=== PATIENT | male | born 1960 | race Caucasian/White ===

== ENCOUNTER 2017-09-29 14:55 | Inpatient (IN) ==
--- NOTE | 2017-09-29 15:30 | Emergency Department Note ---
Disposition Clinical Impression: Upper GI bleed Anemia Qualifiers: Anemia type: unspecified type Qualified Code(s): D64.9 - Anemia, unspecified Disposition: Admitted As Inpatient Condition: Serious Time of Disposition: 18:48 GI Bleed HPI - General Stated complaint: JOSÉ MIGUEL,Tarry stool Time Seen by Provider: 09/29/17 14:58 Source: patient Limitations: no limitations Nursing Notes Reviewed: Yes Vital Signs Reviewed: Yes - History of Present Illness HPI Narrative: Mr. Bliss, a 57yo male, presents from home for evaluation of a 2 day history of shortness of breath with mild exertion. He can walk 10-15 steps before be has to stop to rest due to breathlessness and weakness. He notes lightheadedness when he is [employer]. Over this today course, he also notes dark cold black tarry stools. He has associated nausea with no vomiting. Decreased by mouth intake. After a meal, he has an ache in his epigastrium which radiates to his interscapular back. His only current medication is over-the- counter Goody's headache powder usually taken daily. No fever, chills, vomiting, diarrhea, dysuria, hematuria, hematochezia, cough, chest pains, palpitations, numbness, tingling, syncope, headache, changes in vision - Related Data Home Medications Medication Instructions Recorded Confirmed Aspirin/Acetaminophen/Caffeine 1 each PO Q4H PRN 09/29/17 09/29/17 [Goody's Ex-Str Powder Packet] Lisinopril [Zestril] 40 mg PO DAILY 09/29/17 09/29/17 Allergies Allergy/AdvReac Type Severity Reaction Status Date / Time No Known Allergies Allergy Verified 09/29/17 15:43 All systems ED: reviewed and negative except as stated. Review of Systems: As Per HPI Past Medical History - Past Medical History Medical history: Reports: hypertension Psychiatric history: Reports: no psych history - Social History Smoking Status: Never smoker Smokeless Tobacco Status: Yes Alcohol use: Reports: none Drug use: Reports: none Physical Exam Vital Signs Reviewed - patient tachycardic. General: Patient is alert, oriented, and in no acute distress. Head: atraumatic, normocephalic Eye: normal appearance, PERRL, EOMI, no scleral icterus, no conjunctival injection ENT: mucous membranes moist, normal external ear exam Neck: normal inspection, trachea midline, full ROM Chest: normal inspection, symmetric chest rise Respiratory: Good respiratory effort. Bilateral breath sounds are clear without wheezing, crackles, or rhonchi. Cardiovascular: Regular rate and rhythm. No clicks, rubs, gallops, or murmors. Normal heart sounds. Abdomen: Bowel sounds present normoactive x-4 quadrants. Abdomen is soft, nondistended, and nontender. No guarding or rebound. No organomegaly noted. Rectal: Appropriate tone. No external hemorrhoids. Dark black tarry stool on glove fingertip. Bedside FOBT positive. Musculoskeletal: Spontaneously moving all extremities. Skin: warm, dry, intact. Neuro: Alert and oriented x4. Sensation light touch intact. Psych: Patient's affect is appropriate for situation. - General Limitations: no limitations General appearance: alert Course Course Narrative: Bedside FOBT was strongly positive. Clinical concern is for an upper GI bleed given history and physical. EKG dated 09/29/09 15:01 interpreted as sinus tachycardia with rate 112. Normal intervals. Normal axis. Nonspecific ST-T changes. No previous EKG for comparison. Patients presented tachycardia is responsive to IV fluids. Will provide a second liter. Hemoglobin is low and the tendons. No clinical indication for transfusion at this point. Type and screen completed. Have provided IV Protonix. I discussed the patient with Dr. Lua and Dr. Arriaza; Dr. Lua accepts the patient for continued evaluation management and Dr. Arriaza plans on taking him to endoscopy today. Patient is nothing by mouth. Vital Signs Temperature 97.7 F 09/29/17 15:00 Pulse Rate 115 09/29/17 15:00 Respiratory Rate 20 09/29/17 15:00 Blood Pressure 106/75 09/29/17 15:00 O2 Sat by Pulse Oximetry 99 09/29/17 15:00 Temperature 97.8 F 09/29/17 23:55 Pulse Rate 84 09/29/17 23:55 Respiratory Rate 18 09/29/17 23:55 Blood Pressure 107/67 09/29/17 23:55 O2 Sat by Pulse Oximetry 100 09/29/17 23:55 Oxygen Delivery Oxygen Delivery Room Air GI Bleed - Lab Data Result diagrams: 09/29/17 15:16 09/29/17 15:16 Lab Results 09/29/17 09/29/17 09/29/17 Range/Units 15:16 15:16 15:16 WBC 11.2 H (4.3-11.1) K/mcL RBC 3.30 L (4.19-5.50) M/mcL Hgb 10.2 L (12.9-16.9) g/dL Hct 29.7 L (37.5-50.1) % MCV 90.0 (83.0-100.0) fL MCH 30.9 (28.0-33.3) pg MCHC 34.3 (31.6-35.5) g/dL RDW 13.3 (11.5-14.5) % Plt Count 274 (140-400) K/mcL MPV 10.7 (9.4-12.4) fL Immature Gran % 0.4 (0-4) % Seg Neutrophils % 73.2 % Lymphocytes % 18.2 % Monocytes % 7.7 % Eosinophils % 0.2 % Basophils % 0.3 % Neutrophils # 8.2 (1.6-8.9) K/mcL Lymphocytes # 2.0 (0.6-4.6) K/mcL Monocytes # 0.9 (0.0-1.3) K/mcL Eosinophils # 0.0 (0.0-0.6) K/mcL Basophils # 0.0 (0.0-0.2) K/mcL Sodium 141 (136-145) mEq/L Potassium 3.7 (3.5-5.1) mEq/L Chloride 110 H (98-107) mEq/L Carbon Dioxide 24 (23-29) mEq/L BUN 46 H (6-20) mg/dL Creatinine 1.21 (0.70-1.30) mg/dL Est GFR ( Amer) > 60 (> 60) Est GFR (Non-Af Amer) > 60 (> 60) BUN/Creatinine Ratio 38 H (6-26) Glucose 126 H (70-105) mg/dL Calculated Osmolality 305 H (280-300) Calcium 9.1 (8.6-10.3) mg/dL Total Bilirubin 0.4 (0.3-1.0) mg/dL AST 18 (13-39) Units/L ALT 13 (7-52) Units/L Alkaline Phosphatase 44 (34-104) Units/L Troponin I < 0.03 (< 0.04) ng/mL B-Natriuretic Peptide (Less than 100) pg/mL Serum Total Protein 5.7 L (6.4-8.9) g/dL Albumin 3.9 (3.5-5.7) g/dL Globulin 1.8 L (2.4-3.5) g/dL Albumin/Globulin Ratio 2.2 (1.1-2.2) Urine Color (Yellow) Urine Clarity (Clear) Urine pH (5.0-8.0) pH Units Ur Specific [place] (1.010-1.025) Urine Protein (Neg-Trace) mg/dL Urine Glucose (UA) (Normal) mg/dL Urine Ketones (Negative) mg/dL Urine Blood (Negative) Urine Nitrite (Negative) Urine Bilirubin (Negative) Urine Urobilinogen (Normal) mg/dL Ur Leukocyte Esterase (Negative) Urine Microscopic RBC (0-3) per hpf Urine Microscopic WBC (0-3) per hpf Ur Squamous Epith Cells (None-Few) per lpf Urine Bacteria (None-Few) per hpf Hyaline Casts (None-Few) per lpf Ur Culture Indicated? (NO) Blood Type O POSITIVE Antibody Screen NEGATIVE 09/29/17 09/29/17 09/29/17 Range/Units 15:16 15:22 22:35 WBC (4.3-11.1) K/mcL RBC (4.19-5.50) M/mcL Hgb (12.9-16.9) g/dL Hct (37.5-50.1) % MCV (83.0-100.0) fL MCH (28.0-33.3) pg MCHC (31.6-35.5) g/dL RDW (11.5-14.5) % Plt Count (140-400) K/mcL MPV (9.4-12.4) fL Immature Gran % (0-4) % Seg Neutrophils % % Lymphocytes % % Monocytes % % Eosinophils % % Basophils % % Neutrophils # (1.6-8.9) K/mcL Lymphocytes # (0.6-4.6) K/mcL Monocytes # (0.0-1.3) K/mcL Eosinophils # (0.0-0.6) K/mcL Basophils # (0.0-0.2) K/mcL Sodium (136-145) mEq/L Potassium (3.5-5.1) mEq/L Chloride (98-107) mEq/L Carbon Dioxide (23-29) mEq/L BUN (6-20) mg/dL Creatinine (0.70-1.30) mg/dL Est GFR ( Amer) (> 60) Est GFR (Non-Af Amer) (> 60) BUN/Creatinine Ratio (6-26) Glucose (70-105) mg/dL Calculated Osmolality (280-300) Calcium (8.6-10.3) mg/dL Total Bilirubin (0.3-1.0) mg/dL AST (13-39) Units/L ALT (7-52) Units/L Alkaline Phosphatase (34-104) Units/L Troponin I < 0.03 (< 0.04) ng/mL B-Natriuretic Peptide 5 (Less than 100) pg/mL Serum Total Protein (6.4-8.9) g/dL Albumin (3.5-5.7) g/dL Globulin (2.4-3.5) g/dL Albumin/Globulin Ratio (1.1-2.2) Urine Color Yellow (Yellow) Urine Clarity Clear (Clear) Urine pH 5.5 (5.0-8.0) pH Units Ur Specific [place] 1.027 H (1.010-1.025) Urine Protein Trace (Neg-Trace) mg/dL Urine Glucose (UA) Normal (Normal) mg/dL Urine Ketones Trace H (Negative) mg/dL Urine Blood Negative (Negative) Urine Nitrite Negative (Negative) Urine Bilirubin Negative (Negative) Urine Urobilinogen Normal (Normal) mg/dL Ur Leukocyte Esterase Negative (Negative) Urine Microscopic RBC 0-3 (0-3) per hpf Urine Microscopic WBC 0-3 (0-3) per hpf Ur Squamous Epith Cells Moderate H (None-Few) per lpf Urine Bacteria None Seen (None-Few) per hpf Hyaline Casts Few (None-Few) per lpf Ur Culture Indicated? NO (NO) Blood Type Antibody Screen Attestation Statement - Attestation Attestation: I examined this patient and my medical decision-making was reviewed with the Resident Physician. I agree with the documented findings, disposition and treatment plan as described except to the extent set forth below. Suspect upper GI hemorrhage. Will admit after initiation of Protonix. We will trend H& H. We will consult gastroenterology for further management. Patient has not peritoneal findings at time of admission.
[2017-09-29] MEDS ORDERED: 0.9 % Sodium Chloride 1,000 ML IVC ONE ×2 (15:32→17:44)
[2017-09-29 15:34] LABS: Bilirubin,Urine Negative (Negative); Blood,Urine Negative (Negative); Clarity,Urine Clear (Clear); Color,Urine Yellow (Yellow); Glucose,Urine (UA) Normal (Normal); Ketones,Urine Trace mg/dL (Negative); Leukocyte Esterase,Urine Negative (Negative); Nitrite,Urine Negative (Negative); PH,Urine 5.5 pH Units (5.0-8.0); Protein,Urine Trace mg/dL (Neg-Trace); Specific Gravity,Urine 1.027 (1.010-1.025); Urobilinogen,Urine Normal (Normal)
[2017-09-29 15:37] LABS: Bacteria,Urine None Seen per hpf (None-Few); Hyaline Casts,Urine Few per lpf (None-Few); RBC,Urine 0-3 per hpf (0-3); Squamous Epithelial Cell,Urine Moderate per lpf (None-Few); WBC,Urine 0-3 per hpf (0-3)
[2017-09-29 15:43] LABS: Basophils % 0.3 %; Eosinophils % 0.2 %; Hematocrit 29.7 % (37.5-50.1); Hemoglobin 10.2 g/dL (12.9-16.9); Immature Granulocytes % 0.4 % (0-4); Lymphocytes % 18.2 %; Mean Corpuscular HGB Conc 34.3 g/dL (31.6-35.5); Mean Corpuscular Hemoglobin 30.9 pg (28.0-33.3); Mean Platelet Volume 10.7 fL (9.4-12.4); Monocytes # 0.9 K/mcL (0.0-1.3); Monocytes % 7.7 %; Neutrophils # 8.2 K/mcL (1.6-8.9); Platelet Count 274 K/mcL (140-400); Red Cell Distribution Width 13.3 % (11.5-14.5); Segmented Neutrophils % 73.2 %
[2017-09-29 16:06] LABS: Troponin I < 0.03 ng/mL (< 0.04)
[2017-09-29 16:10] LABS: Alanine Aminotransferase 13 Units/L (7-52); Albumin 3.9 g/dL (3.5-5.7); Albumin/Globulin Ratio 2.2 (1.1-2.2); Alkaline Phosphatase 44 Units/L (34-104); Aspartate Amino Transferase 18 Units/L (13-39); BUN/Creatinine Ratio 38 (6-26); Bilirubin,Total 0.4 mg/dL (0.3-1.0); Blood Urea Nitrogen 46 mg/dL (6-20); Calcium 9.1 mg/dL (8.6-10.3); Carbon Dioxide 24 mEq/L (23-29); Chloride 110 mEq/L (98-107); Globulin 1.8 g/dL (2.4-3.5); Glucose 126 mg/dL (70-105); Osmolality,Calculated 305 (280-300); Potassium 3.7 mEq/L (3.5-5.1); Sodium 141 mEq/L (136-145); Total Protein 5.7 g/dL (6.4-8.9); eGFR For African Americans > 60 (> 60); eGFR For Non-African Americans > 60 (> 60)
[2017-09-29] MEDS ORDERED: Pantoprazole 80 MG in 0.9 % Sodium Chloride 50 ML IVPB ONE (16:40)
[2017-09-29] MEDS ORDERED: *HR* FentaNYL (PF) 100 MCG/2 ML VIAL ONE (19:57)
[2017-09-29] MEDS ORDERED: *HR* Midazolam HCl 5 MG/5 ML VIAL IVP ONE (19:57)
[2017-09-29] MEDS ORDERED: Simethicone 40 MG/0.6 ML MLS IR ONE ×2 (20:06→20:08)
[2017-09-29] MEDS ORDERED: Tetracaine/Benzocaine/Butamben 200MG/SPRAY (100SPY/BOT) MM ONE ×2 (20:06→20:08)
[2017-09-29] MEDS ORDERED: *HR* Midazolam HCl 2 MG/2 ML VIAL IVP ONE ×2 (20:06→20:08)
[2017-09-29] MEDS ORDERED: *HR* FentaNYL (PF) 100 MCG/2 ML VIAL IVP ONE ×2 (20:06→20:08)
--- NOTE | 2017-09-29 20:09 | Pre-Sedation Evaluation ---
Pre-sedation evaluation - Pre-sedation checklist Date of procedure: 09/29/17 Procedure: egd Recent Vitals: Last Vital Signs Temp 98.1 F 09/29/17 20:07 Pulse 94 09/29/17 20:07 Resp 18 09/29/17 20:07 BP 129/75 09/29/17 20:07 Pulse Ox 99 09/29/17 20:07 H&P (including ROS) documented in medical record: Yes Previous reaction to sedatives/anesthetics: Yes; explain in comment Dietary Status: NPO after Midnight Dentition: No loose teeth or bridges ASA Classification *see protocol: CLASS II-Mild systemic disease Plan of Care: Pt appropriate candidate for procedure/moderate/conscious sedation , Risks/benefits of procedure/sedation discussed w/ patient/family
[2017-09-29] MEDS ORDERED: 0.9 % Sodium Chloride 500 ML IVC SCH (20:15)
[2017-09-29] MEDS ORDERED: SODIUM CHLORIDE/NAHCO3/KCL/PEG 4,000 ML SOLN.RECON PO ONE (20:30)
[2017-09-29] MEDS ORDERED: Naloxone 0.4 MG/ML INJ IVP PRN (22:10)
--- NOTE | 2017-09-29 22:22 | Internal Med History&Physical ---
Date of Encounter: 09/29/17 Time of Encounter: 22:17 Internal Medicine - H&P: HPI Chief complaint: upper GI bleed Admitted From: Emergency Dept Plans for Post Hospital Care: Home History of present illness: Mr. Bliss is a 57 year old male was apparently extremely healthy person. Has a worsening difficulty in breathing and a dark black tarry stool for past 2 days. For this to reason patient came to the emergency room for further evaluation. Patient denies chest pain, nausea, vomiting, dysuria, fever, chills, hypertension, numbness, syncopal episode, headache. Workup in the emergency room: Patient was evaluated in the emergency room. Noted that patient's symptoms was 10.2. Patient's stool occult blood was positive. Gastroenterology was called from emergency room. Reason for admission: Possible upper GI bleed for further evaluation and management. Past Med Surg Social Fam HX - Past Medical History Medical history: hypertension Psychiatric history: no psych history - Social History Smoking Status: Never smoker Smokeless Tobacco Status: Yes Alcohol use: none Drug use: none Internal Medicine - H&P: Meds Aspirin/Acetaminophen/Caffeine [Good[employer]'s Ex-Str Powder Packet] 1 each PO Q4H PRN 09/29/17 [History] Lisinopril [Zestril] 40 mg PO DAILY 09/29/17 [History] 3 Allergy/AdvReac Type Severity Reaction Status Date / Time No Known Allergies Allergy Verified 09/29/17 15:43 All Systems PM: A 10-system review of systems was performed and is negative for pertinent findings except as documented above in the HPI. - Constitutional Constitutional: no chills, no fever(s), no night sweats - EENT Eyes: no change in vision, no discharge, no pain, no photophobia Ears: no ear discharge, no ear pain, no tinnitus Nose, mouth and throat: no dysphagia, no nasal discharge, no neck pain, no sore throat - Cardiovascular Cardiovascular ROS IM: no chest pain, no diaphoresis, no dyspnea, no lightheadedness, no palpitations, no syncope - Respiratory Respiratory: dyspnea, no cough, no wheezing, no excessive phlegm production - Gastrointestinal Gastrointestinal: melena, no abdominal pain, no diarrhea, no hematemesis, no hematochezia, no nausea, no vomiting - Musculoskeletal Musculoskeletal ROS IM: no numbness, no tingling - Integumentary Integumentary IM: no rash, no unusual bruising - Neurological Neurological ROS: no confusion, no convulsions, no focal weakness, no numbness, no tingling, no tremor(s) - Hematologic/Lymphatic Hematologic/Lymphatic: no easy bruising - Constitutional Vitals: Temp Pulse Resp BP Pulse Ox 98.1 F 91 16 133/74 92 09/29/17 20:07 09/29/17 20:30 09/29/17 20:30 09/29/17 20:30 09/29/17 20:30 General appearance: Present: A&O X 3, pleasant, no acute distress, answers questions appropriately - Head Head exam: Present: atraumatic, normocephalic - Eye Eye exam: Present: PERRL, conjuntiva pink, sclera anicteric Pupils: Present: PERRL - Neck Neck exam general surgery: Present: supple, trachea midline. Absent: lymphadenopathy - Respiratory Respiratory exam: Present: CTAB. Absent: accessory muscle use, rales, rhonchi, wheezes - Cardiovascular Cardiovascular exam: Present: RRR, +S1, +S2. Absent: diastolic murmur, gallop, rubs, systolic murmur - GI/Abdominal GI/Abdominal exam: Present: normal bowel sounds, soft, no peritoneal signs. Absent: distended, tenderness - Extremities Exam Extremities exam: Present: warm, radial pulses palpable and symmetrical. Absent : calf tenderness, cyanotic, pedal edema - Neurological Exam Neurological exam: Present: CN II-XII intact, oriented X3, no focal deficits. Absent: pronater drift, facial droop, speech deficit - Skin Skin exam: Present: dry, intact Internal Med - H&P Results - Labs CBC & Chem 7: 09/29/17 15:16 09/29/17 15:16 - Assessment and plan (1) Upper GI bleed Current Visit: Yes Status: Acute Assessment and plan: 57/male Admitted with worsening shortness of breath. Patient also has a black tarry stool. Stool occult blood is positive. Gastroenterology was called from the emergency room. Gastroenterologic data EGD. Noted that there was a prepyloric 4 mm oozing ulcer. Appropriate intervention was done. Plan: Admit as inpatient. IV PPI 12 hourly.. Clear liquid diet. Prepare for colonoscopy tomorrow. Fall precaution. SCD. Patient's home dose of aspirin is on hold along with the lisinopril. Plan of care discussed with the patient. Patient verbalized understanding. (2) Anemia Current Visit: Yes Status: Acute Assessment and plan: Patient is a hemoglobin of 10.2. This is likely hemoconcentrated. We will monitor serial labs tomorrow. This is likely secondary to acute blood loss anemia from the prepyloric ulcer. Qualifiers: Anemia type: unspecified type Qualified Code(s): D64.9 - Anemia, unspecified (3) DVT prophylaxis Current Visit: Yes Status: Acute Assessment and plan: Patient has a acute a pyloric bleeding ulcer. Patient is not a candidate for pharmacological DVT prophylaxis. Patient will get SCD. Medical decision making: This patient has a moderate to severe risk of worsening in spite of being on appropriate medication due to the underlying comorbid conditions - Time Spent With Patient Total time spent is greater than 50% in coordination of care (as documented) at patient's floor/unit and/or counseling patient:
[2017-09-30 04:48] LABS: Basophils % 0.4 %; Eosinophils # 0.1 K/mcL (0.0-0.6); Eosinophils % 1.3 %; Hematocrit 26.5 % (37.5-50.1); Hemoglobin 8.8 g/dL (12.9-16.9); Immature Granulocytes % 0.3 % (0-4); Lymphocytes # 2.8 K/mcL (0.6-4.6); Lymphocytes % 31.2 %; Mean Corpuscular HGB Conc 33.2 g/dL (31.6-35.5); Mean Corpuscular Hemoglobin 30.7 pg (28.0-33.3); Mean Corpuscular Volume 92.3 fL (83.0-100.0); Mean Platelet Volume 10.8 fL (9.4-12.4); Monocytes # 0.8 K/mcL (0.0-1.3); Monocytes % 8.3 %; Neutrophils # 5.3 K/mcL (1.6-8.9); Nucleated Red Blood Cells 0.2 /100 WBC (0); Platelet Count 224 K/mcL (140-400); Red Blood Count 2.87 M/mcL (4.19-5.50); Red Cell Distribution Width 13.5 % (11.5-14.5); Segmented Neutrophils % 58.5 %
[2017-09-30 05:08] LABS: Alanine Aminotransferase 13 Units/L (7-52); Albumin 3.5 g/dL (3.5-5.7); Albumin/Globulin Ratio 2.3 (1.1-2.2); Alkaline Phosphatase 42 Units/L (34-104); Aspartate Amino Transferase 18 Units/L (13-39); BUN/Creatinine Ratio 42 (6-26); Bilirubin,Total 0.4 mg/dL (0.3-1.0); Blood Urea Nitrogen 33 mg/dL (6-20); Calcium 8.2 mg/dL (8.6-10.3); Carbon Dioxide 23 mEq/L (23-29); Chloride 112 mEq/L (98-107); Cholesterol 135 mg/dL (< 200); Globulin 1.5 g/dL (2.4-3.5); Glucose 101 mg/dL (70-105); HDL Cholesterol 27 mg/dL (40-59); LDL Cholesterol,Calculated 90 mg/dL (0-99); Magnesium 1.9 mg/dL (1.6-2.6); Osmolality,Calculated 299 (280-300); Phosphorous 2.5 mg/dL (2.7-4.5); Potassium 3.9 mEq/L (3.5-5.1); Sodium 141 mEq/L (136-145); Triglycerides 88 mg/dL (< 150); eGFR For African Americans > 60 (> 60); eGFR For Non-African Americans > 60 (> 60)
[2017-09-30] MEDS ORDERED: Pantoprazole 40 MG VIAL IVP SCH (06:00)
[2017-09-30] MEDS ORDERED: *HR* Propofol 200 MG/20 ML VIAL IVP ONE (08:35)
--- NOTE | 2017-09-30 09:00 | Anesthesia Evaluation PreOp ---
Date of Encounter: 09/30/17 Time of Encounter: 09:00 - Past History Planned Operation: Colonoscopy Cardiac History: HTN, Other (Anemia) Pulmonary History: Denies Any Significant HX [employer] History: Denies Any Significant HX Other Medical History: Denies Any Significant HX Anesthesia History: No Prior Anesthetic Complications Alcohol Use: none Drug use: none Medications and Allergies Aspirin/Acetaminophen/Caffeine [[employer] Ex-Str Powder Packet] 1 each PO Q4H PRN 09/29/17 [History] Lisinopril [Zestril] 40 mg PO DAILY 09/29/17 [History] 3 Allergy/AdvReac Type Severity Reaction Status Date / Time No Known Allergies Allergy Verified 09/29/17 15:43 - Meds/Allergy Pre-op Review Medications Reviewed: Yes Allergies Reviewed: Yes Beta Blockers on Current Med List: No Anesthesia Results - Labs 09/30/17 03:54 09/30/17 03:54 Anesthesia Exam O2 Sat Height 1.8 m Height 1.8 m Weight 97 kg Weight 96.162 kg Weight 96.071 kg O2 Sat by Pulse Oximetry 100 O2 Sat by Pulse Oximetry 100 O2 Sat by Pulse Oximetry 100 O2 Sat by Pulse Oximetry 100 O2 Sat by Pulse Oximetry 92 O2 Sat by Pulse Oximetry 98 O2 Sat by Pulse Oximetry 98 O2 Sat by Pulse Oximetry 97 O2 Sat by Pulse Oximetry 99 O2 Sat by Pulse Oximetry 99 O2 Sat by Pulse Oximetry 99 O2 Sat by Pulse Oximetry 99 O2 Sat by Pulse Oximetry 98 O2 Sat by Pulse Oximetry 100 O2 Sat by Pulse Oximetry 99 O2 Sat by Pulse Oximetry 99 Vital Signs Temp Pulse Resp BP Pulse Ox 97.7 F 115 20 106/75 99 09/29/17 15:00 09/29/17 15:00 09/29/17 15:00 09/29/17 15:00 09/29/17 15:00 Height: 5'11 Weight: 213 lbs NPO (# of Hours): MN Pain Scale: 0 - HEENT Pupil (Motor): Pupils equal, EOMI Mallampati: II Teeth: Normal Oral Opening: Greater than 3 - [employer] LOC: Oriented [employer] Motor: Normal RUE, Normal LUE, Normal RLE, Normal LLE, Normal Face [employer]GER Sensory: Normal: RUE, LUE, RLE, LLE, Face - Cardiac Rhythm: Regular Murmur: None JVD: No Carotid Bruit: No - Pulmonary Breath Sounds: bilateral Clear Respiratory Effort: Symmetrical Anesthesia Assess/Plan ASA Score: 2 Modified [place] Scale for Level of Consciousness: Cooperative, oriented, and tranquil Anesthetic Plan: MAC Monitoring Plan: Standard Monitors Recovery Plan: Other (Discussed MAC, agrees to proceed)
--- NOTE | 2017-09-30 10:03 | Anesthesia Evaluation Post Op ---
Date of Encounter: 09/30/17 Time of Encounter: 10:02 - Vital Signs Vital Signs: Vital Signs Temperature 97.7 F 09/29/17 15:00 Pulse Rate 115 09/29/17 15:00 Respiratory Rate 20 09/29/17 15:00 Blood Pressure 106/75 09/29/17 15:00 O2 Sat by Pulse Oximetry 99 09/29/17 15:00 Temperature 98.1 F 09/30/17 07:49 Pulse Rate 86 09/30/17 08:57 Respiratory Rate 16 09/30/17 08:57 Blood Pressure 131/70 09/30/17 08:57 O2 Sat by Pulse Oximetry 100 09/30/17 08:57 Oxygen Delivery Oxygen Delivery Room Air - Lungs Lungs: Clear Ascult./Percussion - Airway Airway: Non-obstructed - Cardiovascular Regular Rate - Mental Status Mental Status: Alert & Oriented, Answers Appropriately - Pain Pain Scale: 0 - Nausea Vomiting Nausea Vomiting: Not Present - Hydration Hydration: NPO, Has not voided - Discharge PostOp Status: Transfer Patient to floor
--- NOTE | 2017-09-30 11:30 | Gastroenterology Consult Note ---
<Gibran Winn - Last Filed: 09/30/17 11:27> Date of Encounter: 09/30/17 Time of Encounter: 11:00 - Assessment and plan (1) Upper GI bleed Status: Acute Assessment and plan: Fecal occult blood test was positive in the ED. EGD completed yesterday showed one 4mm oozing gastric ulcer in the prepyloric region of stomach, ulcer was treated with heater probe. Plan for colonoscopy today. Follow up in GI office in 2 weeks. Will repeat CBC at that time, if Hgb continues to trend down, will plan for capsule endoscopy. (2) Anemia Status: Acute Assessment and plan: Hgb on admission was 10.2 and this AM Hgb 8.8. Continue to monitor CBC and transfuse PRBC as needed. Plan for colonoscopy today. Qualifiers: Anemia type: unspecified type Qualified Code(s): D64.9 - Anemia, unspecified - Time Spent With Patient Total time spent is greater than 50% in coordination of care (as documented) at patient's floor/unit and/or counseling patient: GI History of Present Illness - Data of Consult Patient: new to practice Consult date: 09/30/17 Requesting Physician: Lucy Noel MD - Consult Narrative Reason for consult: Upper GI Bleed History of present illness: Mr. Bliss is a 57 year old male with PMHx of HTN who presented to the ED with worsening difficulty breathing and melena for 2 days prior to admission. He denies fever, chills, chest pain, abdominal pain, nausea, vomiting, or hematochezia. We were consulted to evaluate his melena and anemia. Hgb on admission was 10.2 and this AM Hgb 8.8. Fecal occult blood test was positive in the ED. EGD completed yesterday showed one 4mm oozing gastric ulcer in the prepyloric region of stomach, ulcer was treated with heater probe. Procedures: None NSAIDs: ASA Anticoagulation: None Past Med Surg Social Fam HX - Past Medical History Medical history: hypertension Psychiatric history: no psych history - Social History Smoking Status: Never smoker Smokeless Tobacco Status: Yes Alcohol use: none Drug use: none - Family History Father Hx Family Cardiac Disorders: (HTN, Pacer) Hx Family Endocrine Disorder: (DM) Mother Hx Family Cardiac Disorders: (HTN) - Gastrointestinal Gastrointestinal: Present: as per HPI - Constitutional Constitutional: as per HPI - EENT Eyes: as per HPI Ears: Present: as per HPI Nose, mouth and throat: Present: as per HPI - Cardiovascular Cardiovascular ROS: Present: as per HPI - Respiratory Respiratory IM: Present: as per HPI - Genitourinary Genitourinary: Absent: change in color, Urinary frequency - Neurological ROS Neurological GI: Present: as per HPI - Hematologic/Lymphatic Hematologic/Lymphatic pediatric: Present: as per HPI - Musculoskeletal Musculoskeletal ROS GI: Present: as per HPI - Integumentary Integumentary GI: Present: as per HPI - Psychiatric ROS Psychiatric GI: Present: as per HPI - Endocrine Endocrine IM: Present: as per HPI - Constitutional Vitals: Temp Pulse Resp BP Pulse Ox 98.1 F 86 16 131/70 100 09/30/17 07:49 09/30/17 08:57 09/30/17 08:57 09/30/17 08:57 09/30/17 08:57 General appearance: Present: cooperative, A&O X 3, no acute distress, answers questions appropriately - Head Head exam: Present: atraumatic, normocephalic - Eye Eye exam: Present: normal appearance, sclera anicteric - ENT ENT exam: Present: mucous membranes moist - Neck Neck exam general surgery: Present: normal inspection, trachea midline - Respiratory Respiratory exam: Present: CTAB. Absent: rales, rhonchi - Cardiovascular Cardiovascular exam: Present: RRR, +S1, +S2 - GI/Abdominal GI/Abdominal exam: Present: soft, no peritoneal signs. Absent: distended, firm , guarding, tenderness - Rectal Rectal exam: Present: deferred - Extremities Exam Extremities exam: Present: warm - Neurological Exam Neurological exam: Present: no focal deficits - Psychiatric Psychiatric exam: Present: normal affect, normal mood - Skin Skin exam: Present: dry, intact, normal color, warm Results - Labs CBC & Chem 7: 09/30/17 03:54 09/30/17 03:54 Labs: Last Result Calcium 8.2 mg/dL (8.6-10.3) L 09/30/17 03:54 Troponin I < 0.03 ng/mL (< 0.04) 09/30/17 10:24 Triglycerides 88 mg/dL (< 150) 09/30/17 03:54 Entire Visit Hgb 8.8 g/dL (12.9-16.9) L 09/30/17 03:54 Hct 26.5 % (37.5-50.1) L 09/30/17 03:54 Total Bilirubin 0.4 mg/dL (0.3-1.0) 09/30/17 03:54 AST 18 Units/L (13-39) 09/30/17 03:54 ALT 13 Units/L (7-52) 09/30/17 03:54 Consult Discharge Plan - Plan Instructions: Omeprazole (By mouth), Gastrointestinal Bleeding (DC), Anemia (DC ) Additional Instructions: Make sure you follow up with the GI doctor in 2 weeks. They want to check your blood counts again then to see if you need more work Referrals: So Ruby CNP [Primary Care Provider] - (tried making appointment today office was closed will try Tuesday to schedule) Wiliam Arriaza MD [Partnered Physician] - (2 weeks) Prescriptions: Omeprazole [PriLOSEC] 20 mg PO BIDAC #60 capsule.dr <Wiliam Arriaza - Last Filed: 09/30/17 22:46> Date of Encounter: 09/30/17 Time of Encounter: 09:00 - Time Spent With Patient Total time spent is greater than 50% in coordination of care (as documented) at patient's floor/unit and/or counseling patient: GI History of Present Illness - Data of Consult Requesting Physician: Lucy Noel MD - Consult Narrative History of present illness: Mr. Bliss is a 57 year old male - Constitutional Vitals: Temp Pulse Resp BP Pulse Ox 97.7 F 86 18 116/72 100 09/30/17 11:44 09/30/17 11:44 09/30/17 11:44 09/30/17 11:44 09/30/17 11:44 Results - Labs CBC & Chem 7: 09/30/17 03:54 09/30/17 03:54 Labs: Last Result Calcium 8.2 mg/dL (8.6-10.3) L 09/30/17 03:54 Troponin I < 0.03 ng/mL (< 0.04) 09/30/17 10:24 Triglycerides 88 mg/dL (< 150) 04/13/18 03:54 Entire Visit Hgb 8.8 g/dL (12.9-16.9) L 09/30/17 03:54 Hct 26.5 % (37.5-50.1) L 09/30/17 03:54 Total Bilirubin 0.4 mg/dL (0.3-1.0) 09/30/17 03:54 AST 18 Units/L (13-39) 09/30/17 03:54 ALT 13 Units/L (7-52) 09/30/17 03:54 - Attending Attestation I have personally performed a face to face evaluation on this patient. I have reviewed and agree with the care plan. History and Exam by me shows: Pt seen. No abd pain. Still dark stool: Rec: Colon today
[2017-09-30 11:45] VITALS: BP 116/72
--- NOTE | 2017-09-30 12:21 | Discharge Summary ---
- NOTES TO OUTPATIENT PROVIDER Notes to Outpatient Provider: Patient was found to have a gastric ulcer. I advised him to stop taking Aspirin and to try to get by with tylenol for back pain. Date of Encounter: 09/30/17 Time of Encounter: 12:18 - Discharge Diagnosis (1) Upper GI bleed Priority: Primary Status: Acute (2) Anemia Priority: Primary Status: Acute Qualifiers: Anemia type: unspecified type Qualified Code(s): D64.9 - Anemia, unspecified Hospital course: Mr. Bliss is a 57 year old male with h/o htn presented with black tarry stools x2days. hgb was 10.2 on admission and was hemodynamically stable. GI saw the patient from the ED and EGD done showed 4mm oozinggastric ulcer that was treated. Colonoscopy the following days showed diverticulosis. He was put on IV PPI initially and switched to oral PPI. His Hgb was 8.8 on day of discharge. GI was ok with him leaving and will see him in 2 weeks to repeat H/H and if he drops they will do a video capsule study. He was advised to stop ASA and to use tylenol for pain. Was discharged on 09/30. - Time Spent with Patient Total time spent providing and/or coordinating discharge services: Greater than 30 minutes - Discharge Medications Prescriptions: Omeprazole [PriLOSEC] 20 mg PO BIDAC #60 capsule. Home Medications: Lisinopril [Zestril] 40 mg PO DAILY 09/29/17 [History] Omeprazole [PriLOSEC] 20 mg PO BIDAC #60 capsule. 09/30/17 [Rx] Allergies/Adverse Reactions: 3 Allergy/AdvReac Type Severity Reaction Status Date / Time No Known Allergies Allergy Verified 09/29/17 15:43 Date of admission: 09/29/17 23:57 Primary care physician: ODILIA Fagan - Constitutional Vitals: Temp Pulse Resp BP Pulse Ox 97.7 F 86 18 116/72 100 09/30/17 11:44 09/30/17 11:44 09/30/17 11:44 09/30/17 11:44 09/30/17 11:44 General appearance: Present: A&O X 3, pleasant, no acute distress, answers questions appropriately Exam: GEN: NAD CVS: RRR. S1, S2, No m/r/g RESP: CTAB ABD: Soft, NT, ND, +BS EXT: No edema. 2+ DP. No rashes NEURO: Nonfocal - Patient Status Disposition: Home, Self-Care Condition: Fair Overall status at discharge: patient is progressing back to baseline - Discharge Instructions Instructions: Omeprazole (By mouth), Gastrointestinal Bleeding (DC), Anemia (DC ) Follow Up With: So Ruby CNP [Primary Care Provider] - (tried making appointment today office was closed will try Tuesday morning to schedule) Wiliam Arriaza MD [Partnered Physician] - (2 weeks) Forms: ED Satisfaction Letter Additional Instructions: Make sure you follow up with the GI doctor in 2 weeks. They want to check your blood counts again then to see if you need more work - Diet and Activity Activity: increase activity as tolerated Diet: low salt diet
[2017-09-30] MEDS ORDERED: Acetaminophen 325 MG TABLET PO PRN (13:24)
--- NOTE | 2017-10-07 08:17 | Electrocardiograph Report ---
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
== END 2017-09-30 14:15 | disposition home or self-care (01) | DRG 378 ==
LOC: 2ANU 14:55 → EMEROO 14:55 → 2ANU 19:35
PROVIDERS: ADMIT Internal Medicine; ATTEND Internal Medicine